=== PATIENT | female | born 1970 | race Caucasian/White ===

== ENCOUNTER 2016-09-20 21:26 | Observation (INO) | payer SELFPAY ==
[~2016-09-20 21:26] MED LIST: ACTOS15 MG; ACTOS30 MG; BACTRIM DS TAB1 EAC2 PO; COMPAZINE10 MG PO; ESTROGEN; FLEXERIL10 MG PO; GLUCAGON HCL1 MG IM; GLUCOPHAGE500 M3 PO; GLUCOTROL10 MG; HUMULIN N100 UNIT/2 SC; HUMULIN R100 U/ML; INSULIN; KEFLEX500 MG; NO HOME MEDICATION XX; NORCO 7.5/325 T1 TAB PO; SOMA
[2016-09-20 22:55] LABS: BASO % 0.1 % (0-2); EOS % 0.5 % (0-7); EOSINOPHIL ABSOLUTE COUNT 0.1 tho/cmm (0.0-0.7); HCT-HEMATOCRIT 44.7 % (34.0-49.0); HGB-HEMOGLOBIN 16.2 gm/dl (12.0-15.5); IMMATURE GRANULOCYTES ABSOLUTE 0.05 tho/cmm (0-0.03); IMMATURE GRANULOCYTES PERCENT 0.3 % (0-0.3); LYMPH % 4.9 % (20-45); LYMPH ABSOLUTE COUNT 0.8 tho/cmm (0.8-4.5); MCH (MEAN CORPUSCULAR HGB) 31.6 pg (28.0-32.0); MCHC MEAN CORPUSCULAR HGB CONC 36.2 % (32.0-36.0); MCV (MEAN CELL VOLUME) 87.3 fl (82.0-96.0); MEAN PLATELET VOLUME 9.7 cmc (9.4-12.4); MONO % 4.7 % (0-12); MONOCYTE ABSOLUTE COUNT 0.8 tho/cmm (0.0-1.2); NEUTROPHIL ABSOLUTE COUNT 14.2 tho/cmm (1.6-8.0); NEUTROPHIL-AUTOMATED 14.2 tho/cmm (1.6-8.0); NEUTROPHILS % 89.5 % (40-80); PLATELET COUNT 223 tho/cmm (150-450); RED BLOOD COUNT 5.12 mil/cmm (4.00-5.20); RED CELL DISTRIBUTION WIDTH 12.1 % (12.4-16.4); WHITE BLOOD COUNT 15.8 tho/cmm (4.0-10.0)
[2016-09-20 23:07] LABS: ALB/GLOB RATIO 0.9 (0.8-2.0); ALBUMIN 3.6 g/dl (3.5-5.0); ALKALINE PHOSPHATASE 124 U/L (33-138); ALT/SGPT 19 U/L (12-78); ANION GAP 11 mmol/L (0-20); AST/SGOT 14 U/L (10-40); BILIRUBIN,TOTAL 0.6 mg/dl (0-1.5); BLOOD UREA NITROGEN 20 mg/dl (6-24); CALCIUM 8.8 mg/dl (8.5-10.5); CARBON DIOXIDE-VENOUS 31 mmol/L (22-32); CHLORIDE 96 mmol/l (96-110); CREATININE 0.88 mg/dl (0.50-1.10); LIPASE 169 U/L (73-393); POTASSIUM 4.3 mmol/L (3.7-5.1); SODIUM 134 mmol/L (135-145); eGFR VALUE FOR BLACK >90 mL/Min
[2016-09-20 23:18] LABS: GLUCOSE 497 mg/dL (70-110)
[2016-09-21 00:34] LABS: URINE APPEARANCE CLOUDY; URINE BILIRUBIN NEGATIVE (NEG); URINE BLOOD SMALL (NEG); URINE COLOR YELLOW; URINE GLUCOSE (UA) LARGE (NEG); URINE KETONE MODERATE (NEG); URINE LEUKOCYTE ESTERASE POSITIVE (NEG); URINE NITRITE NEGATIVE (NEG); URINE PROTEIN MODERATE (NEG)
[2016-09-21 00:42] LABS: URINE RBC 0-3 /[HPF] (0-5); URINE WBC 50-60 /[HPF] (0-5)
[2016-09-21 00:43] LABS: URINE BACTERIA 2+
[2016-09-21 07:20] LABS: ANION GAP 12 mmol/L (0-20); BLOOD UREA NITROGEN 18 mg/dl (6-24); CALCIUM 8.2 mg/dl (8.5-10.5); CARBON DIOXIDE-VENOUS 27 mmol/L (22-32); CHLORIDE 102 mmol/l (96-110); CREATININE 0.83 mg/dl (0.50-1.10); GLUCOSE 395 mg/dL (70-110); SODIUM 137 mmol/L (135-145); eGFR VALUE FOR BLACK >90 mL/Min
[2016-09-21 07:22] LABS: BASO % 0.1 % (0-2); EOS % 0.1 % (0-7); HCT-HEMATOCRIT 41.6 % (34.0-49.0); IMMATURE GRANULOCYTES ABSOLUTE 0.02 tho/cmm (0-0.03); IMMATURE GRANULOCYTES PERCENT 0.2 % (0-0.3); LYMPH % 3.2 % (20-45); LYMPH ABSOLUTE COUNT 0.3 tho/cmm (0.8-4.5); MCH (MEAN CORPUSCULAR HGB) 31.6 pg (28.0-32.0); MCHC MEAN CORPUSCULAR HGB CONC 36.1 % (32.0-36.0); MCV (MEAN CELL VOLUME) 87.6 fl (82.0-96.0); MEAN PLATELET VOLUME 10.1 cmc (9.4-12.4); MONO % 3.8 % (0-12); MONOCYTE ABSOLUTE COUNT 0.4 tho/cmm (0.0-1.2); NEUTROPHIL ABSOLUTE COUNT 8.9 tho/cmm (1.6-8.0); NEUTROPHIL-AUTOMATED 8.9 tho/cmm (1.6-8.0); NEUTROPHILS % 92.6 % (40-80); PLATELET COUNT 179 tho/cmm (150-450); RED BLOOD COUNT 4.75 mil/cmm (4.00-5.20); RED CELL DISTRIBUTION WIDTH 12.3 % (12.4-16.4); WHITE BLOOD COUNT 9.7 tho/cmm (4.0-10.0)
[2016-09-21 07:50] LABS: POTASSIUM 4.1 mmol/L (3.7-5.1)
[2016-09-21] MEDS ORDERED: AMARYL2 M1 PO (16:26)
[2016-09-21] MEDS ORDERED: ZOFRAN4 M2 PO (16:27)
[2017-03-20] MEDS ORDERED: HUMULIN 70100 UNIT/2 SC (12:49)
[2017-03-20] MEDS ORDERED: POTASSIUM CHLO10 ME2 PO (12:50)
== END 2016-09-21 16:50 ==
LOC: EDMED 21:26 → EMR2 09-21 01:06 → CAR1 09-21 03:32
PROVIDERS: Emergency Medicine; Nurse Practitioner Acute Care; ADMIT Hospitalist
DX: K52.9 Noninfective gastroenteritis and colitis, unspecified (principal); E11.9 Type 2 diabetes mellitus without complications; R82.71 Bacteriuria; F17.210 Nicotine dependence, cigarettes, uncomplicated; E86.0 Dehydration; N39.0 Urinary tract infection, site not specified; D72.829 Elevated white blood cell count, unspecified; Z98.890 Other specified postprocedural states; Z90.49 Acquired absence of other specified parts of digestive tract; Z88.0 Allergy status to penicillin; Z79.899 Other long term (current) drug therapy
CPT/HCPCS: G0378; J1170; J1815; J1956; J2270; J2405; J2550; J7030; Q9967

== ENCOUNTER 2016-10-30 19:05 | Emergency (ER) | payer SELFPAY ==
[~2016-10-30 19:05] MED LIST changes: +AMARYL2 M1 PO; +ZOFRAN4 M2 PO
[2016-10-30 19:51] LABS: BASO % 0.2 % (0-2); EOS % 1.2 % (0-7); EOSINOPHIL ABSOLUTE COUNT 0.1 tho/cmm (0.0-0.7); HCT-HEMATOCRIT 42.9 % (34.0-49.0); HGB-HEMOGLOBIN 15.7 gm/dl (12.0-15.5); IMMATURE GRANULOCYTES ABSOLUTE 0.02 tho/cmm (0-0.03); IMMATURE GRANULOCYTES PERCENT 0.2 % (0-0.3); LYMPH % 28.3 % (20-45); LYMPH ABSOLUTE COUNT 2.7 tho/cmm (0.8-4.5); MCH (MEAN CORPUSCULAR HGB) 31.7 pg (28.0-32.0); MCHC MEAN CORPUSCULAR HGB CONC 36.6 % (32.0-36.0); MCV (MEAN CELL VOLUME) 86.7 fl (82.0-96.0); MEAN PLATELET VOLUME 9.2 cmc (9.4-12.4); MONOCYTE ABSOLUTE COUNT 0.8 tho/cmm (0.0-1.2); NEUTROPHIL ABSOLUTE COUNT 5.8 tho/cmm (1.6-8.0); NEUTROPHIL-AUTOMATED 5.8 tho/cmm (1.6-8.0); NEUTROPHILS % 62.1 % (40-80); PLATELET COUNT 256 tho/cmm (150-450); RED BLOOD COUNT 4.95 mil/cmm (4.00-5.20); RED CELL DISTRIBUTION WIDTH 12.2 % (12.4-16.4); WHITE BLOOD COUNT 9.4 tho/cmm (4.0-10.0)
[2016-10-30 19:53] LABS: URINE BILIRUBIN NEGATIVE (NEG); URINE BLOOD MODERATE (NEG); URINE GLUCOSE (UA) LARGE (NEG); URINE KETONE NEGATIVE (NEG); URINE LEUKOCYTE ESTERASE POSITIVE (NEG); URINE NITRITE POSITIVE (NEG); URINE PROTEIN MODERATE (NEG)
[2016-10-30 19:56] LABS: URINE APPEARANCE CLOUDY; URINE COLOR YELLOW
[2016-10-30 20:03] LABS: BLOOD UREA NITROGEN 14 mg/dl (6-24); CALCIUM 9.2 mg/dl (8.5-10.5); CARBON DIOXIDE-VENOUS 30 mmol/L (22-32); CHLORIDE 96 mmol/l (96-110); CREATININE 0.91 mg/dl (0.50-1.10); SODIUM 135 mmol/L (135-145); eGFR VALUE FOR BLACK 88 mL/Min
[2016-10-30 20:03] LABS: URINE AMORPHOUS 1+; URINE BACTERIA 1+; URINE RBC 0 /[HPF] (0-5); URINE WBC FULL FIELD /[HPF] (0-5)
[2016-10-30 20:07] LABS: ANION GAP 13 mmol/L (0-20)
[2016-10-30 20:08] LABS: GLUCOSE 495 mg/dL (70-110)
[2016-10-30 20:09] LABS: POTASSIUM 4.1 mmol/L (3.7-5.1)
[2016-10-30] MEDS ORDERED: PYRIDIUM200 M2 PO (21:48)
[2016-10-30] MEDS ORDERED: BACTRIM DS TAB1 EAC2 PO (21:48)
[2017-03-20] MEDS ORDERED: HUMULIN 70100 UNIT/2 SC (12:49)
[2017-03-20] MEDS ORDERED: POTASSIUM CHLO10 ME2 PO (12:50)
== END 2016-10-30 22:42 ==
LOC: EDMED 19:05
PROVIDERS: Emergency Medicine
DX: N39.0 Urinary tract infection, site not specified (principal); E11.9 Type 2 diabetes mellitus without complications; F17.200 Nicotine dependence, unspecified, uncomplicated; Z79.899 Other long term (current) drug therapy
CPT/HCPCS: J0696; J1170; J2405; J7030

== ENCOUNTER 2016-11-25 12:41 | Emergency (ER) | payer SELFPAY ==
[~2016-11-25 12:41] MED LIST changes: +PYRIDIUM200 M2 PO
[2016-11-25 17:07] LABS: ANION GAP 15 mmol/L (0-20); BLOOD UREA NITROGEN 16 mg/dl (6-24); CALCIUM 9.1 mg/dl (8.5-10.5); CARBON DIOXIDE-VENOUS 25 mmol/L (22-32); CHLORIDE 101 mmol/l (96-110); CREATININE 0.77 mg/dl (0.50-1.10); GLUCOSE 339 mg/dL (70-110); MAGNESIUM 1.6 mg/dl (1.8-2.6); POTASSIUM 4.1 mmol/L (3.7-5.1); SODIUM 137 mmol/L (135-145); eGFR VALUE FOR BLACK >90 mL/Min
[2016-11-25] MEDS ORDERED: MAGNESIUM OXID400 M1 PO (18:11)
[2017-03-20] MEDS ORDERED: HUMULIN 70100 UNIT/2 SC (12:49)
[2017-03-20] MEDS ORDERED: POTASSIUM CHLO10 ME2 PO (12:50)
== END 2016-11-25 19:52 ==
LOC: EDMED 12:41
PROVIDERS: Emergency Medicine
DX: M62.838 Other muscle spasm (principal); E83.41 Hypermagnesemia; E11.65 Type 2 diabetes mellitus with hyperglycemia; F17.200 Nicotine dependence, unspecified, uncomplicated; Z90.49 Acquired absence of other specified parts of digestive tract
CPT/HCPCS: J1170; J3475; J7030

== ENCOUNTER 2016-12-22 10:47 | Observation (INO) | payer SELFPAY ==
[~2016-12-22 10:47] MED LIST changes: +MAGNESIUM OXID400 M1 PO
[2016-12-22] MEDS ORDERED: LANTUS100 UNITS/ SC (10:57)
[2016-12-22] MEDS ORDERED: NOVOLOG100 UNITS/ SC (10:57)
[2016-12-22] MEDS ORDERED: MAGNESIUM250 M2 PO (10:58)
[2016-12-22 11:31] LABS: BASO % 0.2 % (0-2); EOS % 0.2 % (0-7); HCT-HEMATOCRIT 42.8 % (34.0-49.0); HGB-HEMOGLOBIN 15.6 gm/dl (12.0-15.5); LYMPH % 16.2 % (20-45); MCH (MEAN CORPUSCULAR HGB) 30.3 pg (28.0-32.0); MCHC MEAN CORPUSCULAR HGB CONC 36.4 % (32.0-36.0); MCV (MEAN CELL VOLUME) 83.1 fl (82.0-96.0); MEAN PLATELET VOLUME 9.7 cmc (9.4-12.4); MONO % 6.2 % (0-12); MONOCYTE ABSOLUTE COUNT 0.8 tho/cmm (0.0-1.2); NEUTROPHIL ABSOLUTE COUNT 9.3 tho/cmm (1.6-8.0); NEUTROPHIL-AUTOMATED 9.3 tho/cmm (1.6-8.0); NEUTROPHILS % 77.2 % (40-80); PLATELET COUNT 315 tho/cmm (150-450); RED BLOOD COUNT 5.15 mil/cmm (4.00-5.20); RED CELL DISTRIBUTION WIDTH 12.3 % (12.4-16.4); WHITE BLOOD COUNT 12.1 tho/cmm (4.0-10.0)
[2016-12-22 11:38] LABS: ANION GAP 14 mmol/L (0-20); BLOOD UREA NITROGEN 17 mg/dl (6-24); CALCIUM 9.9 mg/dl (8.5-10.5); CARBON DIOXIDE-VENOUS 27 mmol/L (22-32); CHLORIDE 94 mmol/l (96-110); CREATININE 1.25 mg/dl (0.50-1.10); POTASSIUM 4.7 mmol/L (3.7-5.1); SODIUM 130 mmol/L (135-145); eGFR VALUE FOR BLACK 60 mL/Min
[2016-12-22 11:39] LABS: PREGNANCY-SERUM NEGATIVE (NEGATIVE)
[2016-12-22 11:46] LABS: GLUCOSE 569 mg/dL (70-110)
[2016-12-22] MEDS ORDERED: ENDOCET 5-3251 EACH PO (11:53)
[2016-12-22] MEDS ORDERED: NEXIUM 24HR20 M2 PO (11:54)
[2016-12-22] MEDS ORDERED: COLACE100 M1 PO (12:19)
[2016-12-22] MEDS ORDERED: IBUPROFEN200 M2 PO (12:19)
[2016-12-22 14:42] LABS: URINE BILIRUBIN NEGATIVE (NEG); URINE BLOOD LARGE (NEG); URINE GLUCOSE (UA) LARGE (NEG); URINE KETONE NEGATIVE (NEG); URINE LEUKOCYTE ESTERASE POSITIVE (NEG); URINE NITRITE NEGATIVE (NEG); URINE PROTEIN MODERATE (NEG)
[2016-12-22 14:43] LABS: URINE APPEARANCE CLOUDY; URINE COLOR YELLOW
[2016-12-22 14:53] LABS: URINE RBC FULL FIELD /[HPF] (0-5); URINE WBC FULL FIELD /[HPF] (0-5)
[2016-12-22 14:54] LABS: URINE BACTERIA 2+
[2016-12-23 11:05] LABS: ANION GAP 11 mmol/L (0-20); BLOOD UREA NITROGEN 17 mg/dl (6-24); CARBON DIOXIDE-VENOUS 28 mmol/L (22-32); CHLORIDE 103 mmol/l (96-110); CREATININE 0.71 mg/dl (0.50-1.10); POTASSIUM 4.1 mmol/L (3.7-5.1); SODIUM 138 mmol/L (135-145); eGFR VALUE FOR BLACK >90 mL/Min
[2016-12-23 11:06] LABS: GLUCOSE 239 mg/dL (70-110)
[2016-12-23] MEDS ORDERED: BAYER CHEWABLE81 M2 PO (14:24)
[2016-12-23] MEDS ORDERED: RELION NOV100 UNIT/1 SC ×2 (14:27→14:28)
[2017-03-20] MEDS ORDERED: HUMULIN 70100 UNIT/2 SC (12:49)
[2017-03-20] MEDS ORDERED: POTASSIUM CHLO10 ME2 PO (12:50)
== END 2016-12-23 14:55 ==
LOC: EDMED 10:47 → EMR2 13:17 → CAR1 15:50
PROVIDERS: Emergency Medicine; Hospitalist; Physician Assistant; ADMIT Internal Medicine Cardiovascular Disease
DX: R07.9 Chest pain, unspecified (principal); E11.65 Type 2 diabetes mellitus with hyperglycemia; N17.9 Acute kidney failure, unspecified; E87.1 Hypo-osmolality and hyponatremia; A41.51 Sepsis due to Escherichia coli [E. coli]; F17.210 Nicotine dependence, cigarettes, uncomplicated; Z82.49 Family history of ischemic heart disease and other diseases of the circulatory system; Z98.890 Other specified postprocedural states; Z90.49 Acquired absence of other specified parts of digestive tract; Z79.899 Other long term (current) drug therapy; Z88.0 Allergy status to penicillin
CPT/HCPCS: A9500; C8929; G0378; J1815; J2270; J2785; J7030